=== PATIENT | male | born 1995 | race African-American/Black ===

== ENCOUNTER 2017-09-18 07:57 | Emergency (ER) | payer SELFPAY ==
[~2017-09-18] VITALS: Ht 185.4 cm; Wt 81.5 kg
[2017-09-18 07:58] VITALS: BP 134/70; PULSE 86; RESP 16; TEMP 98; O2SAT 96
[2017-09-18] MEDS ORDERED: CIPR0.3S LEFT EAR (08:30)
--- NOTE | 2017-09-18 08:31 | PD ---
HPI Chief Complaint: ENT Complaint Time Seen by Provider: 08:19 Travel History International Travel<30 days: No Contact w/Intl Traveler<30days: No Traveled to known affect area: No History of Present Illness HPI This 21-year-old male is complaining of pain in his left ear. He has a problem with wax buildup. Sometimes he uses peroxide to clean it out recently he has been using some Q-tips. Since his girlfriend cleaned his ears with Q-tips last night is been having more pain in his left ear. He has not had fever or chills. He does not have a sore throat. He is generally healthy [facility] Past Medical History Medical History: Denies Significant Hx Tetanus Vaccination: > 5 Years Influenza Vaccination: No Past Surgical History Surgical History: No Previous Surgery Social History Alcohol Use: No Tobacco Use: Yes Allergies-Medications (Allergen,Severity, Reaction): Coded Allergies: No Known Allergies (Verified Allergy, Unknown, 09/18/17) Reported Meds & Prescriptions Reported Meds & Active Scripts Active No Active Prescriptions or Reported Medications Review of Systems General / Constitutional: No: Fever, Chills Eyes: No: Drainage HENT: Positive: Earache, No: Sore Throat, Neck Pain Cardiovascular: No: Chest Pain or Discomfort, Palpitations Respiratory: No: Cough Gastrointestinal: No: Vomiting, Diarrhea Skin: No Rash Physical Exam Narrative GENERAL: Well-developed male SKIN: Focused skin assessment warm/dry. HEAD: Atraumatic. Normocephalic. EYES: Pupils equal and round. No scleral icterus. No injection or drainage. ENT: No nasal bleeding or discharge. Mucous membranes pink and moist. There are bilateral cerumen impactions. The left ear canal swollen and erythematous NECK: Trachea midline. No JVD. CARDIOVASCULAR: Regular rate and rhythm. No murmur appreciated. RESPIRATORY: No accessory muscle use. Clear to auscultation. Breath sounds equal bilaterally. GASTROINTESTINAL: Abdomen soft, non-tender, nondistended. Hepatic and splenic margins not palpable. MUSCULOSKELETAL: No obvious deformities. No clubbing. No cyanosis. No edema. NEUROLOGICAL: Awake and alert. No obvious cranial nerve deficits. Motor grossly within normal limits. Normal speech. PSYCHIATRIC: Appropriate mood and affect; insight and judgment normal. Data Data Last Documented VS Vital Signs Date Time Temp Pulse Resp B/P (MAP) Pulse Ox O2 Delivery O2 Flow Rate FiO2 09/18/17 07:58 98.0 86 16 134/70 (91) 96 MDM Medical Decision Making Medical Screen Exam Complete: Yes Emergency Medical Condition: Yes Medical Record Reviewed: Yes Differential Diagnosis Differential includes cerumen impaction, otitis externa Narrative Course Patient has left otitis externa. I have counseled him to use a Q-tip in his ears and to use the peroxide to clear the wax. Prescription for Cortisporin will be given Diagnosis Primary Impression: Left otitis externa Scripts Ciprofloxacin-Dexamethasone Otic Drops (Ciprodex Otic Drops) 0.3-0.1% Susp 4 DROP LEFT EAR BID for Infection, #1 BOTTLE 0 Refills Prov: Manuelito Chawla MD 09/18/17 Disposition: 01 DISCHARGE HOME Condition: Stable Manuelito Chawla MD September 18, 2017 08:31
== END 2017-09-18 09:12 | disposition home or self-care (01) ==
LOC: PHED 07:57
DX: H60.92 Unspecified otitis externa, left ear (principal); Z72.0 Tobacco use
CPT/HCPCS: 99283